=== PATIENT | female | born 1945 | race Caucasian/White ===

== ENCOUNTER 2017-08-02 15:59 | Inpatient (IN) ==
--- NOTE | 2017-08-02 16:05 | Emergency Department Report ---
Fall HPI - General Stated Complaint: Fell backwards off step, L hip pain Time Seen by Provider: 08/02/17 16:05 Disposition Referrals: Raquel Man MD [Primary Care Provider] -
[2017-08-02] MEDS ORDERED: FentaNYL 100 MCG/2 ML INJECTION IVP ONE ×2 (16:07→16:51)
[2017-08-02] MEDS: SALINE FLUSH 10ml SYRINGE IVF PRN ×3 (16:19→16:53)
[2017-08-02] MEDS ORDERED: FentaNYL 100 MCG/2 ML INJECTION NAS ONE (16:48)
--- NOTE | 2017-08-02 16:51 | XRay Report ---
Indication: preop hip fracture PROCEDURE: XR chest 1V: Encounter: Initial Comparison: None FINDINGS: The lungs are clear. There is no abnormal airspace opacity, pleural effusion or pneumothorax identified. The heart size and mediastinum are within normal limits. No significant skeletal abnormality is seen. IMPRESSION: No acute cardiopulmonary abnormality. .
--- NOTE | 2017-08-02 16:53 | CT Scan Report ---
Indication: fall, hit head PROCEDURE: CT head/brain wo con: Encounter: Initial Comparison: None Technique: Axial CT images through the head were performed without contrast. Iterative Reconstruction dose reducing technique was utilized. FINDINGS: The ventricles are of normal size, shape, and configuration for the patient's age. There is no evidence of acute intracranial hemorrhage, midline displacement, or mass effect. There are scattered areas of low attenuation in the white matter which most likely represent changes of chronic microvascular ischemia. The CT attenuation of the brain parenchyma is otherwise normal within the cerebellum, brain stem, and cerebral hemispheres. The tympanic cavities and mastoid air cells are free of appreciable disease. There are no definite fractures of the skull base, calvarium, or visualized portion of the midface. IMPRESSION: No CT evidence of acute traumatic intracranial injury. .
--- NOTE | 2017-08-02 16:54 | XRay Report ---
Indication: fall deformity to left femur PROCEDURE: AP and Lateral views of the Left Femur Encounter: Initial Comparison: None Findings: Comminuted displaced intertrochanteric left femoral fracture with varus angulation. No additional acute fracture or dislocation seen. Mild hip joint space narrowing. Impression: Closed post traumatic intertrochanteric left femoral fracture. .
--- NOTE | 2017-08-02 16:54 | XRay Report ---
Indication: fall deformity to left femur/hip PROCEDURE: XR pelvis 1-2V: Encounter: Initial Comparison: None Findings: Comminuted displaced foreshortened intertrochanteric left femoral fracture with varus angulation. No additional acute fracture or dislocation seen. Bony demineralization. Impression: Closed posttraumatic intertrochanteric left femoral fracture. .
[2017-08-02] MEDS ORDERED: ONDANSETRON 4 MG/2 ML INJECTION IVP ONE (17:03)
--- NOTE | 2017-08-02 17:50 | History & Physical Report ---
History of Present Illness Date: 08/02/17 Chief complaint: hip pain following a fall HPI: Patient is a 71-year-old female who resides at home with her son. Earlier today she was coming up stairs from her basement, forgot something, and started back down the stairs and fell. She did not lose consciousness. She had immediate pain. Her son was home and called EMS. She was brought to the emergency department and had a workup including negative CT head, negative chest x-ray, and pelvic/femur x-rays which revealed an intertrochanteric left hip fracture. EKG was normal. She had several fentanyl doses and a dose of Zofran in the ER. Urinary catheter was also placed on the ER. Dr. Verma was notified and plans to do surgery tomorrow. The hospitalist service was notified for admission of the patient. Review of Systems All systems PM: 10-point ROS was reviewed, no additional remarkable complaints except - Gastrointestinal Gastrointestinal: Present: nausea - Musculoskeletal Musculoskeletal: Present: other (L hip pain) PFSH Medical History Hypothyroidism Hyperlipidemia Osteopenia Surgical History: Cholecystectomy Family History: Father - . Bladder cancer Mother - of old age. TIA. Sister - Alzheimer's Son - Healthy - Social History Smoking status: Never smoker Substance use type: does not use Alcohol intake frequency: does not drink Housing: house Household members: children (son) Current occupational status: retired Social history: PCP-Dr. Man Medications Home Medications Medication Instructions Recorded Confirmed Type Levothyroxine Tab [Synthroid] 75 mcg PO ACB 08/02/17 08/02/17 History Simvastatin [Zocor] 10 mg PO HS 08/02/17 08/02/17 History Allergies Allergy/AdvReac Type Severity Reaction Status Date / Time Penicillins Allergy Hives Verified 08/02/17 16:17 Sulfa (Sulfonamide Allergy Verified 08/02/17 16:17 Antibiotics) Exam Vital Signs: Temperature 97.7 F 08/02/17 16:01 Pulse Rate 62 08/02/17 17:30 Respiratory Rate 18 08/02/17 16:01 Blood Pressure 179/73 H 08/02/17 17:30 Pulse Oximetry 100 08/02/17 17:30 Height/Weight/BMI: Height 1.73 m Weight 80 kg - Constitutional Present: no acute distress, well nourished, well developed - Routine HEENT Exam Head: Present: normocephalic, atraumatic Eye: Present: EOMI, PERRL ENT: Present: mucous membranes moist, dentition normal - Routine Neck Exam Present: supple. Absent: lymphadenopathy, thyromegaly - Routine Respiratory Exam Present: CTA bilaterally. Absent: wheezes - Routine Cardiovascular Exam Present: RRR. Absent: murmur - Routine Abdominal Exam Present: soft, normoactive bowel sounds, non distended. Absent: tenderness - Routine Extremities Exam Present: no edema, normal capillary refill Comments: L leg shortened and externally rotated - Routine Skin Exam Present: dry, warm - Routine Neurological Exam Present: alert, oriented X3, CN II-XII intact - Routine Psychiatric Exam Present: normal affect, cooperative Results - Labs CBC & Chem 7: 08/02/17 15:44 08/02/17 15:44 Labs: Laboratory Tests 08/02/17 15:44 AST 30 ALT 30 Alkaline Phosphatase 102 Urinalysis Completely negative. Specific gravity 1.020, pH 6.5 - ECG Data Tracing #1 NSR - Rate 65 BPM - Imaging and Cardiology CT scan - head Additional comments: Date of Exam: 08/02/17 Indication: fall, hit head PROCEDURE: CT head/brain wo con: FINDINGS: The ventricles are of normal size, shape, and configuration for the patient's age. There is no evidence of acute intracranial hemorrhage, midline displacement, or mass effect. There are scattered areas of low attenuation in the white matter which most likely represent changes of chronic microvascular ischemia. The CT attenuation of the brain parenchyma is otherwise normal within the cerebellum, brain stem, and cerebral hemispheres. The tympanic cavities and mastoid air cells are free of appreciable disease. There are no definite fractures of the skull base, calvarium, or visualized portion of the midface. IMPRESSION: No CT evidence of acute traumatic intracranial injury. Chest x-ray Additional comments: Date of Exam: 08/02/17 Indication: preop hip fracture PROCEDURE: XR chest 1V: FINDINGS: The lungs are clear. There is no abnormal airspace opacity, pleural effusion or pneumothorax identified. The heart size and mediastinum are within normal limits. No significant skeletal abnormality is seen. IMPRESSION: No acute cardiopulmonary abnormality. Pelvis xray Additional comments: Date of Exam: 08/02/17 Indication: fall deformity to left femur/hip PROCEDURE: XR pelvis 1-2V: Findings: Comminuted displaced foreshortened intertrochanteric left femoral fracture with varus angulation. No additional acute fracture or dislocation seen. Bony demineralization. Impression: Closed posttraumatic intertrochanteric left femoral fracture. femur xray Additional comments: Date of Exam: 08/02/17 Indication: fall deformity to left femur PROCEDURE: AP and Lateral views of the Left Femur Findings: Comminuted displaced intertrochanteric left femoral fracture with varus angulation. No additional acute fracture or dislocation seen. Mild hip joint space narrowing. Impression: Closed post traumatic intertrochanteric left femoral fracture. Assessment and Plan (1) Intertrochanteric fracture of left hip Current visit: Yes Status: Acute Assessment and Plan: Assessment Left intertrochanteric hip fracture Fall secondary to loss of footing Hypothyroidism Hyperlipidemia Osteopenia Jehovah witness - refuses blood transfusions Plan Admit as inpatient to the hospitalist service, Dr. Marquez attending, for intertrochanteric hip fracture. It is expected her stay will exceed 2 overnights given her fracture requiring surgery. Patient is a Buddhist and refuses blood transfusion, even in the midst of a life-threatening situation. Her son, Cl, is her DPOA-H. Consult placed to Dr. Verma with plan for surgery tomorrow. Nothing by mouth after midnight. Consult Dr. Bethea for metabolic bone workup. Check Vitamin D level. Nguyen catheter placed in emergency department. SCDs for DVT prophylaxis. MiraLAX,PRN milk of magnesia,PRN bisacodyl suppository, and senna plus docusate ordered for bowel motivation. Acetaminophen 500 mg every 5 hours and Dilaudid IV every 3 hours PRN pain. Ondansetron 4 mg IV every 6 hours PRN nausea/vomiting. Continue levothyroxine for hypothyroidism and simvastatin for hyperlipidemia. CBC, BMP, TSH and vitamin D in the a.m. for laboratory completeness. Patient wishes to be a full code. Patient is a Buddhist and refuses blood transfusion, even in the midst of a life-threatening situation. Her son, Cl, is her DPOA-H. Upon dismissal, care to return to Dr. Man. DVT Prophylaxis: SCD's Resuscitation Status: Full Code - Physician Narriative Physician: Chris Marquez MD Narriative: 08/02/17 19:22 Jimmy I have independently interviewed and examined pt. Chart reviewed. Case discussed with ED physician and my PA. Care plan developed with my supervision; agree with above. Patient presents to ED for evaluation of acute fall trauma. Was going up stairs from basement, when realized she forgot something. Backed down the 2 stairs and lost footing, falling on the cement floor. Significant pain with the fall. Able to sit up, but not move leg without significant pain. Hit head, but no loss of consciousness. Son upstairs and came to her aide. EMS activated. Found to have left hip fracture. Prior to her injury, she has been in her typical state of good health. No recent respiratory problems - breathing well without SOA, cough or congestions. No chest pain or pressure. Very active at home. Lungs: clear CV: regular AB: soft nt/nd +BS MSE: awake alert appropriate Assessment Left intertrochanteric femur fracture Fall secondary to loose of footing Hypothyroidism HDL Osteopenia of Hips - Dexa scan 2014 Jehovah witness - refuses blood transfusion Plan Inpatient admission for definitive surgical repair of her hip fracture. Anticipate greater than 2 midnights of hospital care needed. Orthopedic consult for surgical repair. Nguyen cath to monitor urine output and minimize need for movements. Control pain with Dilaudid. Zofran prn nausea. NS at 75cc/hr to maintain hydration - patient will be NPO post midnight for anticipated Sx tomorrow. Start routine Miralax and Senna Plus to decrease risk for constipation. MOM and Dulcolax suppositories prn. IS for pulmonary toilet. Check Vit D level due to fracture. Will start Ca with Vit D BID. Consult Dr Bethea for Metabolic Bone evaluation. SCD preop for DVT prevention. Monitor blood counts due to fracture and potential blood loss anemia. Recheck BMP in am due to IVF use. Check TSH secondary to hypothyroidism. Continue home medications. Full code as per her requests. Care to return to Dr Kim at time of discharge from [facility]. Hospital Course Summary Disclaimer: The visit summary below is not to be considered part of the above Progress Note. Hospital Course: Left intertrochanteric hip fracture Hypothyroidism Hyperlipidemia Osteopenia 08/02/17 Hospital admission Admit as inpatient to the hospitalist service, Dr. Marquez attending, for intertrochanteric hip fracture. It is expected her stay will exceed 2 overnights given her fracture requiring surgery. Consult placed to Dr. Verma with plan for surgery tomorrow. Nothing by mouth after midnight. Consult Dr. Bethea for metabolic bone workup. Nguyen catheter placed in emergency department. SCDs for DVT prophylaxis. MiraLAX,PRN milk of magnesia,PRN bisacodyl suppository, and senna plus docusate ordered for bowel motivation. Acetaminophen 500 mg every 5 hours and Dilaudid IV every 3 hours PRN pain. Ondansetron 4 mg IV every 6 hours PRN nausea/vomiting. Continue levothyroxine for hypothyroidism and simvastatin for hyperlipidemia. CBC, BMP, TSH and vitamin D in the a.m. for laboratory completeness. Patient wishes to be a full code. Upon dismissal, care to return to Dr. Man. Patient is a Buddhist and refuses blood transfusion, even in the midst of a life-threatening situation. Her son, Cl, is her DPOA-H.
[2017-08-02 18:23] VITALS: BMI 25.3
[2017-08-02] MEDS ORDERED: ACETAMINOPHEN 500 MG TABLET PO PRN (18:39)
[2017-08-02] MEDS ORDERED: HYDROMORPHONE 2 MG/ML INJECTION IVP PRN (18:39)
[2017-08-02] MEDS ORDERED: BISACODYL 10 MG SUPPOSITORY RECTALLY PRN (18:39)
[2017-08-02] MEDS: NS 1,000 ML IV SCH (18:47)
[2017-08-02] MEDS: SENNA + DOCUSATE TABLET PO SCH ×2 (19:58→20:05)
[2017-08-02] MEDS: CALCIUM 600 + VIT D 400 TABLET PO SCH ×2 (19:58→20:05)
[2017-08-02] MEDS: SIMVASTATIN 10 MG TABLET PO SCH ×2 (19:58→20:05)
[2017-08-03] MEDS: LEVOTHYROXINE 75 MCG TABLET PO SCH (05:44)
[2017-08-03] MEDS: POLYETHYL GLYCOL 3350 17gm PACKET PO SCH (08:12)
[2017-08-03] MEDS: SENNA + DOCUSATE TABLET PO SCH ×2 (08:12→20:06)
[2017-08-03] MEDS: CALCIUM 600 + VIT D 400 TABLET PO SCH ×2 (08:12→20:06)
[2017-08-03] MEDS: NS 1,000 ML IV SCH ×5 (08:19→17:59)
--- NOTE | 2017-08-03 08:25 | Progress Note ---
- Date 08/03/17 Subjective: Sandy is seen in her room this morning. She states pain control in her hip is tolerable. She states when she fell she did hit the back of her head but did not lose consciousness. She denies any headache or neck pain. She has good range of motion of her neck without any discomfort. She denies any history of heart problems, lung problems or bleeding abnormalities. She denies any shortness of breath or cough. She denies any chest pain, tightness or pressure. She states she does not exercise but is active, and mows the lawn without chest discomfort or shortness of breath. Surgery is planned for this afternoon. She reiterates to me that she would not want a blood transfusion. Objective Vital signs: Temperature 99.4 F 08/03/17 07:15 Pulse Rate 77 08/03/17 07:15 Respiratory Rate 16 08/03/17 07:15 Blood Pressure 143/57 H 08/03/17 07:15 Pulse Oximetry 98 08/03/17 07:15 Height/Weight/BMI: Height 1.73 m Weight 76.5 kg Body Mass Index 25.3 Comments: GEN-alert, oriented, no acute distress HEENT-sclera anicteric, oropharynx is moist NECK-supple, good range of motion CV-regular rate and rhythm, no murmurs CHEST-clear to auscultation bilaterally ABD-soft, nontender with positive bowel sounds -Nguyen in place EXT-SCDs on, no edema NEURO-alert and oriented 3, no focal deficits SKIN-warm and dry and without rashes Results - Labs CBC & Chem 7: 08/03/17 04:22 08/03/17 04:22 Assessment and Plan (1) Intertrochanteric fracture of left hip Current visit: Yes Status: Acute Assessment and Plan: Assessment Left intertrochanteric hip fracture Fall secondary to loss of footing -no loss of consciousness Hypothyroidism Hyperlipidemia Osteopenia Jehovah witness - refuses blood transfusions Acute blood loss anemia with hemoglobin of 13 on 08/02/2017 and and 10.9 2016 Plan Patient is a Mu-ism and refuses blood transfusion, even in the midst of a life-threatening situation. Her son, Cl, is her DPOA-H. Plan for surgery later today with Dr. Verma for hip fracture Consult Dr. Bethea for metabolic bone workup. Vitamin D level is pending. Continue Nguyen catheter for now SCDs for DVT prophylaxis. Start oral iron, and multivitamin tomorrow Acetaminophen 500 mg every 5 hours and Dilaudid IV every 3 hours PRN pain. Ondansetron 4 mg IV every 6 hours PRN nausea/vomiting. Continue levothyroxine for hypothyroidism and simvastatin for hyperlipidemia. CBC, BMP tomorrow DVT Prophylaxis: SCD's Resuscitation Status: Full Code Hospital Course Summary Disclaimer: The visit summary below is not to be considered part of the above Progress Note. Hospital Course: Left intertrochanteric hip fracture Hypothyroidism Hyperlipidemia Osteopenia 08/02/17 Hospital admission Admit as inpatient to the hospitalist service, Dr. Marquez attending, for intertrochanteric hip fracture. It is expected her stay will exceed 2 overnights given her fracture requiring surgery. Consult placed to Dr. Verma with plan for surgery tomorrow. Nothing by mouth after midnight. Consult Dr. Bethea for metabolic bone workup. Nguyen catheter placed in emergency department. SCDs for DVT prophylaxis. MiraLAX,PRN milk of magnesia,PRN bisacodyl suppository, and senna plus docusate ordered for bowel motivation. Acetaminophen 500 mg every 5 hours and Dilaudid IV every 3 hours PRN pain. Ondansetron 4 mg IV every 6 hours PRN nausea/vomiting. Continue levothyroxine for hypothyroidism and simvastatin for hyperlipidemia. CBC, BMP, TSH and vitamin D in the a.m. for laboratory completeness. Patient wishes to be a full code. Upon dismissal, care to return to Dr. Man. Patient is a Mu-ism and refuses blood transfusion, even in the midst of a life-threatening situation. Her son, Cl, is her DPOA-H.
[2017-08-03] MEDS ORDERED: CLINDAMYCIN PB 900 MG/50 ML BAG IV ONE (08:31)
--- NOTE | 2017-08-03 08:39 | Orthopedic Consult Note ---
Orthopedic Consultation HPI - Consultation Info Consult Date: 08/03/17 Attending Physician: Amish Marrero MD Consult Reason: fracture - History of Present Illness Sandy is a pleasant 71 year old female who lives independently in her own home. 08/02/17 she was going to the basement to get something to cook out of her deep freeze. She started back up the steps, and realized she forgot something. She described stepping back down the steps backwards, resulting in a fall on her left hip. She was transported to [facility] ER via ambulance where a left hip IT fracture was identified. She did hit the back of her head during her fall. CT head done in the ER was negative for intracranial bleed. Her pain is located in the left lateral hip. It is worse with activity, better with rest and IV narcotics. Presently, her pain is well controlled. She denies hip pain prior to her fall. She has been in her normal good state of health prior to the fall and denies chest pain, shortness of breath, abdominal pain, dysuria, fever, chills, sweats or renal issues. She is a [employer]regation and does not want any blood products. Hgb is 10.6., EKG is NSR. Review of Systems - Constitutional Constitutional: Absent: chills, fatigue, fever(s), headache(s) - EENT Eyes: Absent: blurry vision Ears, nose, mouth, throat: Absent: headaches - Cardiovascular Cardiovascular: Absent: chest pain, dyspnea on exertion Vascular: Absent: pedal edema - Respiratory Respiratory: Absent: cough, pain on inspiration - Gastrointestinal Gastrointestinal: Absent: abdominal pain - Genitourinary Genitourinary General: Absent: fatigue Genitourinary Female: Absent: dysuria - Musculoskeletal Musculoskeletal: Present: as per HPI - Integumentary/Breasts Integumentary: Absent: wounds - Neurological Neurological: Absent: numbness - Endocrine Endocrine: Absent: cold intolerance - Hematologic/Lymphatic Hematologic/Lymphatic: Absent: easy bleeding [facility] Patient Stated Medical History Other HEENT Yes: [facility] Medical History Intertrochanteric fracture of left hip (Acute Medical) Intertrochanteric fracture of left femur (Acute Medical) Surgical History: Cholecystectomy - Social History Smoking status: Never smoker Current residence: Apartment/Private Home (lives with adult son) Medications Home Medications Medication Instructions Recorded Confirmed Type Levothyroxine Tab [Synthroid] 75 mcg PO ACB 08/02/17 08/02/17 History Simvastatin [Zocor] 10 mg PO HS 08/02/17 08/02/17 History Allergies Allergy/AdvReac Type Severity Reaction Status Date / Time Penicillins Allergy Hives Verified 08/02/17 16:17 Sulfa (Sulfonamide Allergy Verified 08/02/17 16:17 Antibiotics) Orthopedic Exam Vital signs: Temperature 99.4 F 08/03/17 07:15 Pulse Rate 77 08/03/17 07:15 Respiratory Rate 16 08/03/17 07:15 Blood Pressure 143/57 H 08/03/17 07:15 Pulse Oximetry 98 08/03/17 07:15 - Constitutional General Appearance: Present: alert, orientated x3, no acute distress - Respiratory Exam Present: non-labored - Cardiovascular Exam Present: pedal pulses intact Capillary Refill: < 2-3 Seconds - Abdominal Exam Absent: tenderness - Extremities Exam Present: no edema, normal capillary refill Comments: left leg shortened and externally rotated. TTP over the lateral hip. Positive log roll. - Integumentary Exam Present: pink, warm, dry, intact - Lymphatic Lymphatic: Absent: lymphedema - Neurological Exam Present: intact to light touch, no deficits - Psychiatric Exam Present: alert, normal affect - Labs Result Diagrams: 08/03/17 04:22 08/03/17 04:22 Abnormal lab results 08/03/17 08/03/17 Range/Units 04:22 04:22 RBC 3.46 L (4.00-5.20) M/MM3 Hgb 10.9 L D (12-16) GM/DL Hct 33.0 L D (36-46) % Neut % (Auto) 74.3 H (33-66) % Lymph % (Auto) 16.2 L (23-45) % Glucose 117 H (65-110) MG/DL H & H 08/03/17 Range/Units 04:22 Hgb 10.9 L D (12-16) GM/DL Hct 33.0 L D (36-46) % - Diagnostic results Hip x-ray: report reviewed (CT head report reviewed), image reviewed Impression and Recommendation (1) Intertrochanteric fracture of left hip Current visit: Yes Qualifiers: Encounter type: initial encounter Fracture type: closed Fracture alignment: displaced Qualified Code(s): S72.142A - Displaced intertrochanteric fracture of left femur, initial encounter for closed fracture Status: Acute Recommendation: Left hip IM nail. Surgery is planned for this afternoon. Keep NPO Consent SCD's and continue IV pain control Risks and benefits of the recommended procedure were discussed with the patient and/or patient's legal provider relations representative. They include: infection, nerve damage, artery damage, stroke, OH, PE, DVT, ileus, continued pain, or risk that the injury may not heal despite surgery. There are also medical risks of anesthesia. Risks are not limited to the above mentioned alone. Hospital Course Summary Disclaimer: The visit summary below is not to be considered part of the above Progress Note. Hospital Course: Left intertrochanteric hip fracture Hypothyroidism Hyperlipidemia Osteopenia 08/02/17 Hospital admission Admit as inpatient to the hospitalist service, Dr. Marquez attending, for intertrochanteric hip fracture. It is expected her stay will exceed 2 overnights given her fracture requiring surgery. Consult placed to Dr. Verma with plan for surgery tomorrow. Nothing by mouth after midnight. Consult Dr. Bethea for metabolic bone workup. Nguyen catheter placed in emergency department. SCDs for DVT prophylaxis. MiraLAX,PRN milk of magnesia,PRN bisacodyl suppository, and senna plus docusate ordered for bowel motivation. Acetaminophen 500 mg every 5 hours and Dilaudid IV every 3 hours PRN pain. Ondansetron 4 mg IV every 6 hours PRN nausea/vomiting. Continue levothyroxine for hypothyroidism and simvastatin for hyperlipidemia. CBC, BMP, TSH and vitamin D in the a.m. for laboratory completeness. Patient wishes to be a full code. Upon dismissal, care to return to Dr. Man. Patient is a Congregation and refuses blood transfusion, even in the midst of a life-threatening situation. Her son, Cl, is her DPOA-H.
[2017-08-03] MEDS: NOZIN NASAL SWAB NAS ONE (13:01)
[2017-08-03] MEDS ORDERED: FentaNYL 100 MCG/2 ML INJECTION IVP ONE (13:12)
--- NOTE | 2017-08-03 13:18 | Anesthesia Preoperative Report ---
Anesthesia Preoperative Record - Date and Time Date: 08/03/17 Preoperative Diagnosis: left intertrochanteric femur fracture Proposed Procedure: orif left hip NPO Since Date: 08/02/17 NPO Since Time: 23:00 Allergies/Adverse Reactions: Allergies Allergy/AdvReac Type Severity Reaction Status Date / Time Penicillins Allergy Hives Verified 08/02/17 16:17 Sulfa (Sulfonamide Allergy Verified 08/02/17 16:17 Antibiotics) - Vital Signs Vital Signs: Temperature 99.2 F 08/03/17 12:51 Pulse Rate 78 08/03/17 12:51 Respiratory Rate 16 08/03/17 12:51 Blood Pressure 169/72 H 08/03/17 12:51 Pulse Oximetry 96 08/03/17 12:51 Height and Weight: Height 1.73 m Weight 76.5 kg Body Mass Index 25.3 - Medications Inpatient Medications: Current Medications Acetaminophen (Tylenol) 500 mg PO Q5H PRN PRN Reason: Discomfort Last Admin: 08/02/17 19:58 Dose: 500 mg Bisacodyl (Dulcolax) 10 mg RECTALLY DAILY PRN PRN Reason: Constipation Calcium/Vitamin D (Caltrate + D) 1 tab PO BID [facility] Last Admin: 08/03/17 08:12 Dose: Not Given Fentanyl (Sublimaze) 100 mcg IVP O ONE Stop: 08/03/17 13:13 Folic Acid/Iron/Vitamin B12 (Niferex Forte) 1 cap PO DAILY [facility] Hydromorphone HCl (Dilaudid) 0.5 mg IVP Q3H PRN PRN Reason: Pain Sodium Chloride (Normal Saline) 1,000 mls @ 75 mls/hr IV .[id number] [facility] Last Admin: 08/03/17 08:19 Dose: 75 mls/hr Sodium Chloride (Normal Saline) 1,000 mls @ 75 mls/hr IV .[id number] [facility] Last Admin: 08/03/17 13:00 Dose: 75 mls/hr Levothyroxine Sodium (Synthroid) 75 mcg PO ACB [facility] Last Admin: 08/03/17 05:44 Dose: 75 mcg Magnesium Hydroxide (Mom) 30 ml PO DAILY PRN PRN Reason: Constipation Ondansetron HCl (Zofran) 4 mg IVP Q6H PRN PRN Reason: Nausea Polyethylene Glycol (Miralax) 17 gm PO DAILY [facility] Last Admin: 08/03/17 08:12 Dose: Not Given Senna/Docusate Sodium (Senna Plus Tablet) 1 tab PO BID [facility] Last Admin: 08/03/17 08:12 Dose: Not Given Simvastatin (Zocor) 10 mg PO HS [facility] Last Admin: 08/02/17 20:05 Dose: Not Given Sodium Chloride (Iv Flush) 10 - 80 ml IVF PRN PRN PRN Reason: Flushing Last Admin: 08/02/17 16:53 Dose: 10 ml Home Medications: Home Medications Medication Instructions Recorded Confirmed Type Levothyroxine Tab [Synthroid] 75 mcg PO ACB 08/02/17 08/02/17 History Simvastatin [Zocor] 10 mg PO HS 08/02/17 08/02/17 History - Medical History Cardiovascular: Reports: High Cholesterol Renal/Endocrine: Reports: Thyroid Disease (Hypothydroidism) - Surgical History GI Surgery/Treatments: Reports: Cholecystectomy Anesthesia Reactions: None Hx Family Anesthesia Reaction: No - Social History Smoking Status: Never smoker Substance Use Type: does not use Alcohol Intake Frequency: does not drink - Pertinent Findings Laboratory: CBC and BMP 08/03/17 04:22 08/03/17 04:22 BMP 08/03/17 04:22 Sodium 138 Potassium 3.9 Chloride 103 Carbon Dioxide 28 BUN 17.0 Creatinine 0.9 D Glucose 117 H Calcium 9.5 Urine 08/02/17 Range/Units 17:30 Urine Color Yellow (YELLOW) Urine Clarity Clear Urine pH 6.5 (5.0-8.0) Ur Specific [place] 1.020 (1.015-1.025) Urine Protein Negative (NEGATIVE) Urine Glucose (UA) Negative (NEGATIVE) EKG: Sinus Rhythm - Physical Exam Respiratory Exam: Present: lungs clear, bilateral breath sounds equal Cardiovascular Exam: Present: regular rate and rhythm - Airway Assessment Mallampati Score: II TMD: 2 Fingerbreadths, 3 Fingerbreadths Neck Extension: good Overall Assessment: no airway concerns - ASA ASA Score: 2 - Plan Anesthesia: General TIVA, General Inhalation Gases - Discussion Discussion: Discussed risks/options/alternatives of anesthesia and questions answered. Patient consents. Nursing pain assessment noted. Attestation Statement: Prior to the delivery of any anesthetic medication, I examined the patient, developed the plan, obtained the patient's consent and discussed the risk and benefits of the procedure with the patient/guardian.
[2017-08-03] MEDS: ONDANSETRON 4 MG/2 ML INJECTION IVP PRN ×2 (13:33→18:31)
[2017-08-03] MEDS ORDERED: KETAMINE 500 MG/10 ML INJECTION ONE (13:42)
[2017-08-03] MEDS ORDERED: PROPOFOL 20 ML ONE ×2 (13:42→16:08)
[2017-08-03] MEDS ORDERED: LIDOCAINE 2% (100mg/5mL) PF 5ml vl ONE (13:42)
[2017-08-03] MEDS ORDERED: FentaNYL 100 MCG/2 ML INJECTION ONE ×3 (13:42→16:23)
[2017-08-03] MEDS ORDERED: MIDAZOLAM 2mg/2ml INJECTION IVP ONE (13:59)
[2017-08-03] MEDS ORDERED: BUPIVACAINE 0.25% (2.5mg/ml) PF 30ml INJECTION ONE (15:24)
[2017-08-03] MEDS ORDERED: LIDOCAINE 1% (10mg/ml) 30ml SDV INJ ONE (15:24)
[2017-08-03] MEDS ORDERED: EPHEDRINE 50mg/ml INJECTION ONE (15:34)
[2017-08-03] MEDS ORDERED: BUPIV 0.25% 30ml/LIDO 1% 30ml MIXTURE ID ONE (15:39)
[2017-08-03] MEDS ORDERED: TRANEXAMIC ACID 1,000mg/10ml INJECTION TOP ONE (16:00)
[2017-08-03] MEDS ORDERED: METOCLOPRAMIDE 10mg/2ml INJECTION IVP PRN (16:36)
[2017-08-03] MEDS ORDERED: HYDROMORPHONE 2 MG/ML INJECTION IVP PRN (16:36)
[2017-08-03] MEDS ORDERED: NOZIN NASAL SWAB NAS ONE (17:56)
[2017-08-03] MEDS: NOZIN NASAL SWAB NAS SCH ×2 (17:59→20:06)
[2017-08-03] MEDS: CLINDAMYCIN PB 900 MG/50 ML BAG IV SCH (20:06)
[2017-08-03] MEDS: SIMVASTATIN 10 MG TABLET PO SCH (20:06)
[2017-08-04] MEDS: NOZIN NASAL SWAB NAS SCH ×4 (02:16→20:00)
[2017-08-04] MEDS: CLINDAMYCIN PB 900 MG/50 ML BAG IV SCH ×2 (02:16→08:58)
[2017-08-04] MEDS: NS 1,000 ML IV SCH ×2 (03:18→05:37)
[2017-08-04] MEDS: LEVOTHYROXINE 75 MCG TABLET PO SCH (06:26)
--- NOTE | 2017-08-04 07:34 | Orthopedic Progress Note ---
Date: Subjective/Severity of Illness: Sandy is sitting up in bed and appears comfortable. Denies lightheadedness or dizziness. Pain is well controlled. She has not been out of bed yet. Hgb 7.8 but well tolerated. Dressings dry. N/V intact. Orthopedic Objective PO Vital signs: Temperature 96.3 F L 08/04/17 03:00 Pulse Rate 78 08/04/17 03:00 Respiratory Rate 16 08/04/17 03:00 Blood Pressure 101/46 08/04/17 03:00 Pulse Oximetry 94 08/04/17 03:00 Height and Weight: Height 5 ft 8 in Weight 168 lb 10.458 oz Body Mass Index 25.3 - Constitutional General Appearance: Present: alert, no acute distress - Respiratory Exam Present: non-labored - Cardiovascular Exam Present: pedal pulses intact - Surgical Site Incision: dressing intact, no drainage (Mild shaddowing but no significant drainage.) - Integumentary Exam Present: pink, warm, dry, intact - Neurological Exam Present: intact to light touch, no deficits - Psychiatric Exam Present: alert, normal affect - Labs Result Diagrams: 08/04/17 04:32 08/04/17 04:32 Abnormal lab results 08/04/17 08/04/17 Range/Units 04:32 04:32 RBC 2.47 L (4.00-5.20) M/MM3 Hgb 7.8 L D (12-16) GM/DL Hct 24.2 L D (36-46) % Neut % (Auto) 77.7 H (33-66) % Lymph % (Auto) 12.0 L (23-45) % [place] % (Auto) 10.0 H (0-9.0) % Lymph # (Auto) 0.9 L (1-4.8) T/MM3 Chloride 108 H (98-107) MEQ/L Glucose 135 H (65-110) MG/DL Calcium 7.8 L D (8.4-10.2) MG/DL H & H 08/03/17 08/04/17 Range/Units 04:22 04:32 Hgb 10.9 L D 7.8 L D (12-16) GM/DL Hct 33.0 L D 24.2 L D (36-46) % Orthopedic Assessment and Plan (1) Intertrochanteric fracture of left hip Status: Acute Qualifiers: Encounter type: initial encounter Fracture type: closed Fracture alignment: displaced Qualified Code(s): S72.142A - Displaced intertrochanteric fracture of left femur, initial encounter for closed fracture Assessment and Plan: Long Gamma Nail by Dr Marrero 08/03/17. Lovenox for DVT coverage. Recommend 30 days. Anemia well tolerated at this time. Hgb 7.8 Mobilize with PT . WBAT. - Anticoagulation Therapy Anticoagulation: Lovenox 40 mg SQ Daily x 30 days from day of surgery Hospital Course Summary Disclaimer: The visit summary below is not to be considered part of the above Progress Note. Hospital Course: Left intertrochanteric hip fracture Hypothyroidism Hyperlipidemia Osteopenia 08/02/17 Hospital admission Admit as inpatient to the hospitalist service, Dr. Marquez attending, for intertrochanteric hip fracture. It is expected her stay will exceed 2 overnights given her fracture requiring surgery. Consult placed to Dr. Verma with plan for surgery tomorrow. Nothing by mouth after midnight. Consult Dr. Bethea for metabolic bone workup. Nguyen catheter placed in emergency department. SCDs for DVT prophylaxis. MiraLAX,PRN milk of magnesia,PRN bisacodyl suppository, and senna plus docusate ordered for bowel motivation. Acetaminophen 500 mg every 5 hours and Dilaudid IV every 3 hours PRN pain. Ondansetron 4 mg IV every 6 hours PRN nausea/vomiting. Continue levothyroxine for hypothyroidism and simvastatin for hyperlipidemia. CBC, BMP, TSH and vitamin D in the a.m. for laboratory completeness. Patient wishes to be a full code. Upon dismissal, care to return to Dr. Man. Patient is a Spiritism and refuses blood transfusion, even in the midst of a life-threatening situation. Her son, Cl, is her DPOA-H.
--- NOTE | 2017-08-04 08:26 | Remote Fluorsocopy Report ---
Indication: LEFT HIP GAMMA NAIL PROCEDURE: RF hip LT 2 view: Encounter: Initial Comparison: Left pelvis radiographs dated August 02, 2017 Findings: Six fluoroscopic spot images are submitted for interpretation. Images show a reduction and internal fixation of the intertrochanteric left femoral fracture with placement of an intramedullary nail, compression screw and two distal interlocking screws. Improved alignment of the fracture fragments. Impression: Fluoroscopy as above. Fluoroscopy time is 209.4 seconds. Fluoroscopy dose is 4870 mRad. .
[2017-08-04] MEDS: HYDROCODONE/APAP 5mg/325mg TABLET PO PRN ×2 (08:56→20:53)
[2017-08-04] MEDS: POLYETHYL GLYCOL 3350 17gm PACKET PO SCH (08:59)
[2017-08-04] MEDS: SENNA + DOCUSATE TABLET PO SCH ×2 (08:59→20:00)
[2017-08-04] MEDS: ASPIRIN *EC* 81 MG TABLET PO SCH ×2 (08:59→20:00)
[2017-08-04] MEDS ORDERED: NIFEREX FORTE 150 CAPSULE PO SCH (09:00)
[2017-08-04] MEDS ORDERED: ENOXAPARIN 40 MG/0.4 ML INJECTION SQ SCH (09:00)
--- NOTE | 2017-08-04 09:05 | Progress Note ---
- Date 08/04/17 Subjective: Sandy is seen this morning in her room sitting up in a chair. She states she does have some pain in her hip, especially with movement. She has not yet taken any pain medication this morning but will take some now. She denies any lightheadedness, chest pain or shortness of breath. She has no nausea or vomiting. She had decreased urine output last night with only 120 ML's. She has IV fluids going at 80 ML's per hour. Objective Vital signs: Temperature 96.7 F L 08/04/17 07:00 Pulse Rate 79 08/04/17 07:00 Respiratory Rate 20 08/04/17 07:00 Blood Pressure 131/52 08/04/17 07:00 Pulse Oximetry 97 08/04/17 07:00 Height/Weight/BMI: Height 1.73 m Weight 81.7 kg Body Mass Index 25.3 Comments: GEN-mildly pale, alert, oriented, no acute distress HEENT-sclera anicteric, oropharynx is moist NECK-supple CV-regular rate and rhythm CHEST-clear to auscultation bilaterally ABD-soft, nontender, nondistended, positive bowel sounds -no Nguyen EXT-no edema, SCDs are on NEURO-no focal deficits SKIN-warm and dry Results - Labs CBC & Chem 7: 08/04/17 04:32 08/04/17 04:32 Assessment and Plan (1) Intertrochanteric fracture of left hip Current visit: Yes Status: Acute Assessment and Plan: Assessment Left intertrochanteric hip fracture Fall secondary to loss of footing -no loss of consciousness Hypothyroidism Hyperlipidemia Osteopenia Jehovah witness - does not want blood transfusions Acute blood loss anemia with hemoglobin of 13 on 08/02/2017 and and 10.9 2016 and 7.8 on 08/04/2017 Plan Overall, the patient is doing well. She is asymptomatic with hemoglobin of 7.8. We'll start oral iron/B 12/folic acid. Consult Dr. Bethea for metabolic bone workup. Vitamin D level is pending. Continue Nguyen catheter for now due to decreased urine output, if urine output has improved by noon can discontinue. Encourage increase fluid intake SCDs for DVT prophylaxis. Discussed with MEREDITH Irby for Dr. Marrero today. She will also receive aspirin today and hold off on Lovenox this morning, possibly start Lovenox tomorrow. DC IV fluids when taking by mouth well Continue levothyroxine for hypothyroidism and simvastatin for hyperlipidemia. DVT Prophylaxis: SCD's Resuscitation Status: Full Code - Physician Narriative Physician: Mena Welsh MD Hospital Course Summary Disclaimer: The visit summary below is not to be considered part of the above Progress Note. Hospital Course: Left intertrochanteric hip fracture Hypothyroidism Hyperlipidemia Osteopenia 08/02/17 Hospital admission Admit as inpatient to the hospitalist service, Dr. Marquez attending, for intertrochanteric hip fracture. It is expected her stay will exceed 2 overnights given her fracture requiring surgery. Consult placed to Dr. Verma with plan for surgery tomorrow. Nothing by mouth after midnight. Consult Dr. Bethea for metabolic bone workup. Nguyen catheter placed in emergency department. SCDs for DVT prophylaxis. MiraLAX,PRN milk of magnesia,PRN bisacodyl suppository, and senna plus docusate ordered for bowel motivation. Acetaminophen 500 mg every 5 hours and Dilaudid IV every 3 hours PRN pain. Ondansetron 4 mg IV every 6 hours PRN nausea/vomiting. Continue levothyroxine for hypothyroidism and simvastatin for hyperlipidemia. CBC, BMP, TSH and vitamin D in the a.m. for laboratory completeness. Patient wishes to be a full code. Upon dismissal, care to return to Dr. Man. Patient is a Bahai and refuses blood transfusion, even in the midst of a life-threatening situation. Her son, Cl, is her DPOA-H. 08/03/2017 Plan Patient is a Bahai and refuses blood transfusion, even in the midst of a life-threatening situation. Her son, Cl, is her DPOA-H. Plan for surgery later today with Dr. Verma for hip fracture Consult Dr. Bethea for metabolic bone workup. Vitamin D level is pending. Continue Nguyen catheter for now SCDs for DVT prophylaxis. Start oral iron, and multivitamin tomorrow Acetaminophen 500 mg every 5 hours and Dilaudid IV every 3 hours PRN pain. Ondansetron 4 mg IV every 6 hours PRN nausea/vomiting. Continue levothyroxine for hypothyroidism and simvastatin for hyperlipidemia. CBC, BMP tomorrow
[2017-08-04] MEDS: NIFEREX FORTE 150 CAPSULE PO SCH ×2 (09:06→20:00)
[2017-08-04] MEDS: CALCIUM 600 + VIT D 400 TABLET PO SCH ×2 (09:06→20:00)
--- NOTE | 2017-08-04 10:05 | Operative Note ---
DATE OF PROCEDURE 08/03/2017 PREOPERATIVE DIAGNOSIS Left three-part intertrochanteric hip fracture. POSTOPERATIVE DIAGNOSIS Left three-part intertrochanteric hip fracture. PROCEDURE Intramedullary fixation of left intertrochanteric hip fracture. SURGEON Jaylen Marrero MD ACCREDITATION COORDINATOR Mahamed Bey PA-C COMPLICATIONS None. ANESTHESIA General with LMA. EBL AND FLUIDS Please see Anesthetic Records. COMPLICATIONS None. DESCRIPTION OF PROCEDURE Mrs. Cutler and her left hip were identified and marked in her hospital room bed. She was brought back to the operating suite and placed supine on the fracture table. She was then placed under general anesthesia. Both feet were placed in well-padded traction boots. The left leg was placed into traction and internal rotation. The right leg was placed into extension without any traction. Fluoroscopic images confirmed reduction. The left lower extremity was then prepped and draped in my normal sterile fashion. Time-out was performed. A 3 cm incision was made proximal to the greater trochanter. The proximal femur was opened over a guidepin. A long guidepin was then passed. While passing the long guidepin, it did feel as if there was some unusual resistance in the canal. With fluoroscopic imaging, the pin was abutted against the anterior cortex. I did not see a reason why it would be doing this by looking at the canal. I brought the long guide sonia back out. I put a small bend on the end and then re-passed it. This time I was able to get it down to the distal femur without incident. I then overreamed to a 12.5. I did send reaming samples to Pathology. I then measured for a 380 mm nail. I passed an 11 x 380 mm nail over the guidewire. A lag screw was then placed into a center-center location to the femoral head using an aiming arm. The compression screw was used to provide compression at the fracture site which did appear to tighten down nicely. The nail was then lock proximally and then let off an eighth of a turn so the nail could slide. The proximal wounds were then fully irrigated and the deep layer was closed with 2-0 Vicryl. Subcutaneous tissue was also closed with 2-0 Vicryl and the skin was closed with running 4-0 Monocryl. I then injected 3 g of TXA around the fracture site using an 18 gauge spinal needle. Two locking bolts were then placed distally using perfect-nondalton technique from lateral to medial. These wounds were also closed in a similar fashion. Sterile dressings were then placed. The traction boots were removed. She was allowed to awaken from general anesthesia and then taken back to the Recovery Room under the care of Anesthesia. She tolerated the procedure well. There were no complications. PHILL
[2017-08-04] MEDS ORDERED: FUROSEMIDE 20 MG/2 ML INJECTION IVP ONE (15:03)
[2017-08-04] MEDS: SIMVASTATIN 10 MG TABLET PO SCH (20:00)
[2017-08-05] MEDS: NOZIN NASAL SWAB NAS SCH ×4 (01:06→18:40)
[2017-08-05] MEDS: LEVOTHYROXINE 75 MCG TABLET PO SCH (06:57)
[2017-08-05] MEDS: HYDROCODONE/APAP 5mg/325mg TABLET PO PRN (06:59)
[2017-08-05] MEDS: NIFEREX FORTE 150 CAPSULE PO SCH (08:32)
[2017-08-05] MEDS: CALCIUM 600 + VIT D 400 TABLET PO SCH ×2 (08:32→21:52)
[2017-08-05] MEDS: SENNA + DOCUSATE TABLET PO SCH ×2 (08:33→21:52)
[2017-08-05] MEDS: ASPIRIN *EC* 81 MG TABLET PO SCH ×2 (08:33→21:52)
[2017-08-05] MEDS: POLYETHYL GLYCOL 3350 17gm PACKET PO SCH (08:33)
--- NOTE | 2017-08-05 10:05 | Orthopedic Progress Note ---
Date: Subjective/Severity of Illness: Sandy is sitting up in bed and appears comfortable. She states she feels a little dizzy when she first sits up but it resolves quickly. Denies CP or breathing difficulties. She was up with PT yesterday and it hurts more with activity. Pain is minimal at rest. Switched from Lovenox to ASA twice a day and will encourage SCDs and mobility to prevent DVTs. Hgb down to 6.7 today Orthopedic Objective PO Vital signs: Temperature 97.1 F 08/05/17 07:30 Pulse Rate 85 08/05/17 07:30 Respiratory Rate 12 08/05/17 07:30 Blood Pressure 127/51 08/05/17 07:30 Pulse Oximetry 95 08/05/17 07:30 Height and Weight: Height 5 ft 8 in Weight 173 lb 8.061 oz Body Mass Index 25.3 - Constitutional General Appearance: Present: alert, no acute distress - Respiratory Exam Present: non-labored - Cardiovascular Exam Present: pedal pulses intact - Surgical Site Incision: dressing intact, no drainage - Integumentary Exam Present: pink, warm, dry, intact - Neurological Exam Present: intact to light touch, no deficits - Psychiatric Exam Present: alert, normal affect - Labs Result Diagrams: 08/05/17 03:57 08/05/17 03:57 Abnormal lab results 08/05/17 08/05/17 Range/Units 03:57 03:57 RBC 2.12 L (4.00-5.20) M/MM3 Hgb 6.7 L D (12-16) GM/DL Hct 20.6 L D (36-46) % Immature Gran % (Auto) 0.6 H (0.0-0.5) % Lymph % (Auto) 21.9 L (23-45) % [place] % (Auto) 11.2 H (0-9.0) % Abs Immat Gran (auto) 0.04 H (0.00-0.03) T/MM3 Glucose 112 H (65-110) MG/DL H & H 08/03/17 08/04/17 08/05/17 Range/Units 04:22 04:32 03:57 Hgb 10.9 L D 7.8 L D 6.7 L D (12-16) GM/DL Hct 33.0 L D 24.2 L D 20.6 L D (36-46) % Orthopedic Assessment and Plan (1) Intertrochanteric fracture of left hip Status: Acute Qualifiers: Encounter type: initial encounter Fracture type: closed Fracture alignment: displaced Qualified Code(s): S72.142A - Displaced intertrochanteric fracture of left femur, initial encounter for closed fracture Assessment and Plan: Long Gamma Nail by Dr Marrero 08/03/17. Aspirin and SCDs for DVT coverage in place of Lovenox. Anemia fairly well tolerated at this time. Hgb 6.7 Folic acid / B12 and iron ordered. Mobilize with PT . WBAT. IRU screen in progress. - Anticoagulation Therapy Anticoagulation: ASA 81 mg PO BID x6 weeks Hospital Course Summary Disclaimer: The visit summary below is not to be considered part of the above Progress Note. Hospital Course: Left intertrochanteric hip fracture Hypothyroidism Hyperlipidemia Osteopenia 08/02/17 Hospital admission Admit as inpatient to the hospitalist service, Dr. Marquez attending, for intertrochanteric hip fracture. It is expected her stay will exceed 2 overnights given her fracture requiring surgery. Consult placed to Dr. Verma with plan for surgery tomorrow. Nothing by mouth after midnight. Consult Dr. Bethea for metabolic bone workup. Nguyen catheter placed in emergency department. SCDs for DVT prophylaxis. MiraLAX,PRN milk of magnesia,PRN bisacodyl suppository, and senna plus docusate ordered for bowel motivation. Acetaminophen 500 mg every 5 hours and Dilaudid IV every 3 hours PRN pain. Ondansetron 4 mg IV every 6 hours PRN nausea/vomiting. Continue levothyroxine for hypothyroidism and simvastatin for hyperlipidemia. CBC, BMP, TSH and vitamin D in the a.m. for laboratory completeness. Patient wishes to be a full code. Upon dismissal, care to return to Dr. Man. Patient is a Restorationist and refuses blood transfusion, even in the midst of a life-threatening situation. Her son, Cl, is her DPOA-H. 08/03/2017 Plan Patient is a Restorationist and refuses blood transfusion, even in the midst of a life-threatening situation. Her son, Cl, is her DPOA-H. Plan for surgery later today with Dr. Verma for hip fracture Consult Dr. Bethea for metabolic bone workup. Vitamin D level is pending. Continue Nguyen catheter for now SCDs for DVT prophylaxis. Start oral iron, and multivitamin tomorrow Acetaminophen 500 mg every 5 hours and Dilaudid IV every 3 hours PRN pain. Ondansetron 4 mg IV every 6 hours PRN nausea/vomiting. Continue levothyroxine for hypothyroidism and simvastatin for hyperlipidemia. CBC, BMP tomorrow
--- NOTE | 2017-08-05 11:27 | Progress Note ---
- Date 08/05/17 Subjective: Mrs. Cutler is seen this morning in follow up for her left femur fracture repair on 08/03/17 and acute blood loss anemia. She is seen while sitting in her recliner, watching TV. She denies any complaints or concerns including no chest pain, shortness of breath, palpitations, abdominal pain, nausea, vomiting or dysuria. She denies any dizziness, lightheadedness or near syncope though review of medical chart reveals that she admitted to some lightheadedness when standing when examined by ortho this morning. She admits that she has not had a BM in several days and feels "full". She feels gas moving around in her stomach but denies any flatulence. She states that she does not have much of an appetite and attributes it to being constipated. Vital signs remain stable. Pain is well controlled, currently 0/10 at rest and increases to 5/10 with movement. Hemoglobin continues to trend down and currently 6.7. As she is a Jehovah witness, she again refused blood transfusion. Objective Vital signs: Temperature 97.1 F 08/05/17 07:30 Pulse Rate 85 08/05/17 07:30 Respiratory Rate 12 08/05/17 07:30 Blood Pressure 127/51 08/05/17 07:30 Pulse Oximetry 95 08/05/17 07:30 Height/Weight/BMI: Height 5 ft 8 in Weight 173 lb 8.061 oz Body Mass Index 25.3 Comments: Patient seen while resting in her recliner in no apparent distress. - Constitutional Present: no acute distress, well nourished, well developed, cooperative - Routine HEENT Exam Head: Present: normocephalic, atraumatic Eye: Present: PERRL. Absent: conjunctival icterus ENT: Present: mucous membranes moist - Routine Respiratory Exam Present: CTA bilaterally. Absent: prolonged expiratory phase, rales, respiratory distress, rhonchi, stridor, wheezes, crackles - Routine Cardiovascular Exam Present: RRR, S1, S2, no murmur - Routine Abdominal Exam Present: soft, non tender. Absent: rebound, guarding Comments: hypoactive bowel sounds. - Routine Extremities Exam Present: edema (mild to left lower extremity; no edema noted to right lower extremity.), pulses intact Comments: surgical bandage to left hip clean, dry and intact; ice present to area. - Routine Back/Spine/Pelvis Exam Back/Spine: Present: full ROM. Absent: vertebral tenderness - Routine Musculoskeletal Exam Musculoskeletal: Present: no clubbing or cyanosis, normal strength, moving extremities well - Routine Skin Exam Present: dry, warm. Absent: jaundice Comments: afebrile - Routine Neurological Exam Present: alert, oriented X3, moving all extremities, hearing grossly intact, normal speech. Absent: facial asymmetry - Routine Lymphatic Exam Lymphatic: Absent: lymphedema - Routine Psychiatric Exam Present: normal affect, cooperative, good insight, good judgment Results - Labs CBC & Chem 7: 08/05/17 03:57 08/05/17 03:57 Assessment and Plan (1) Intertrochanteric fracture of left hip Current visit: Yes Status: Acute Assessment and Plan: Assessment S/P long gamma nail placement by Dr. Marrero - 08/03/17. Left intertrochanteric hip fracture Fall secondary to loss of footing -no loss of consciousness Hypothyroidism Hyperlipidemia Osteopenia Jehovah witness - does not want blood transfusions Acute blood loss anemia with hemoglobin of 13 on 08/02/2017 and and 10.9 2016 and 7.8 on 08/04/2017, 6.7 on 08/05. Plan - 08/05/17 (Mirakian) POD #2. Overall, Mrs. Cutler is doing well and continues to improve. Her pain is well controlled. Continue pain control, limiting narcotics as able. Continue to encourage participation in therapies for strengthening and improvement functional abilities. Awaiting IRU screen. Hemoglobin continues to trend down - currently 6.7. No signs of acute bleeding and denies symptoms. Discussed and offered blood transfusion which she refused as she is a Jehovah witness Patient is a [employer]. Her son, Cl, is her DPOA-H. She was started on iron/B12/folic acid on 08/04. Discussed with Dr. Fitzgerald ( covering attending for hospitalist) who recommended consulting pharmacy about possible Infed infusion. Vitamine D level was borderline low at 39. Continue Calcium with Vit. D supplementation. Appreciate Dr. Bethea's time and expertise regarding metabolic bone work up. Urine output improved with Lasix 20mg x 1 dose given on 08/04/17. Nguyen removed and patient voiding well. Continue to monitor urinary output closely and encourage oral fluid intake. IV fluids discontinued on 08/04/17. Continue SCDs and ASA BID for DVT prophylaxis. Continue levothyroxine for hypothyroidism and simvastatin for hyperlipidemia. Will recheck CBC and BMP in AM to monitor blood counts, electrolytes and renal function. DVT Prophylaxis: SCD's Resuscitation Status: Full Code - Time spent with patient Time with patient PN: 35 minutes - Physician Narriative Physician: other (Dr. Fitzgerald) Hospital Course Summary Disclaimer: The visit summary below is not to be considered part of the above Progress Note. Hospital Course: Left intertrochanteric hip fracture Hypothyroidism Hyperlipidemia Osteopenia 08/02/17 Hospital admission Admit as inpatient to the hospitalist service, Dr. Marquez attending, for intertrochanteric hip fracture. It is expected her stay will exceed 2 overnights given her fracture requiring surgery. Consult placed to Dr. Verma with plan for surgery tomorrow. Nothing by mouth after midnight. Consult Dr. Bethea for metabolic bone workup. Nguyen catheter placed in emergency department. SCDs for DVT prophylaxis. MiraLAX,PRN milk of magnesia,PRN bisacodyl suppository, and senna plus docusate ordered for bowel motivation. Acetaminophen 500 mg every 5 hours and Dilaudid IV every 3 hours PRN pain. Ondansetron 4 mg IV every 6 hours PRN nausea/vomiting. Continue levothyroxine for hypothyroidism and simvastatin for hyperlipidemia. CBC, BMP, TSH and vitamin D in the a.m. for laboratory completeness. Patient wishes to be a full code. Upon dismissal, care to return to Dr. Man. Patient is a Amish and refuses blood transfusion, even in the midst of a life-threatening situation. Her son, Cl, is her DPOA-H. 08/03/2017 Plan Overall, Mrs. Cutler is doing well and continues to improve. Her pain is well controlled. Continue pain control, limiting narcotics as able. Continue to encourage participation in therapies for strengthening and improvement functional abilities. Awaiting IRU screen. Hemoglobin continues to trend down - currently 6.7. No signs of acute bleeding and denies symptoms. Discussed and offered blood transfusion which she refused as she is a Jehovah witness Patient is a Anglican. Her son, Cl, is her DPOA-H. She was started on iron/B12/folic acid on 08/04. Discussed with Dr. Fitzgerald ( covering attending for hospitalist) who recommended consulting pharmacy about possible Infed infusion. Vitamine D level was borderline low at 39. Continue Calcium with Vit. D supplementation. Appreciate Dr. Bethea's time and expertise regarding metabolic bone work up. Urine output improved with Lasix 20mg x 1 dose given on 08/04/17. Nguyen removed and patient voiding well. Continue to monitor urinary output closely and encourage oral fluid intake. IV fluids discontinued on 08/04/17. Continue SCDs and ASA BID for DVT prophylaxis. Continue levothyroxine for hypothyroidism and simvastatin for hyperlipidemia. Will recheck CBC and BMP in AM to monitor blood counts, electrolytes and renal function.
[2017-08-05] MEDS ORDERED: PHARMACY CONSULT - OTHER MEDS MC ONE (11:45)
[2017-08-05] MEDS ORDERED: IRON DEXTRAN COMPLEX 100mg/2ml INJECTION IV ONE ×2 (13:00→15:00)
--- NOTE | 2017-08-05 15:02 | Pharmacy Consult ---
Pharmacy Consult-Iron - Laboratory Information Iron Labs 08/03/17 08/04/17 08/05/17 04:22 04:32 03:57 Hgb 10.9 L D 7.8 L D 6.7 L D Hct 33.0 L D 24.2 L D 20.6 L D - Consult Information IV IRON CONSULT: Dx: Acute anemia secondary to blood loss: blood loss estimated at approximately 2 units Today's hct = 20.6% Total calculated iron dextran dose = 200 mg Will give 25mg IV test dose. Watch VS q15min x 1 hr. (Watching for anaphylaxis, respiratory distress, hives) If no reaction, will give Iron Dextran 75 mg IV today for a total of 100 mg today and 100 mg IV dose tomorrow 08/06/17 Watch VS q30min x 4 after each therapeutic dose. Thank you for the iron dosing consult, Parul Crain RPh
[2017-08-05] MEDS: SIMVASTATIN 10 MG TABLET PO SCH (21:53)
[2017-08-06] MEDS: NOZIN NASAL SWAB NAS SCH ×4 (02:19→17:51)
[2017-08-06] MEDS: LEVOTHYROXINE 75 MCG TABLET PO SCH (05:36)
[2017-08-06] MEDS: CALCIUM 600 + VIT D 400 TABLET PO SCH ×2 (08:34→20:40)
[2017-08-06] MEDS: ASPIRIN *EC* 81 MG TABLET PO SCH ×2 (08:34→20:40)
[2017-08-06] MEDS: POLYETHYL GLYCOL 3350 17gm PACKET PO SCH (08:35)
[2017-08-06] MEDS: SENNA + DOCUSATE TABLET PO SCH ×2 (08:35→20:40)
[2017-08-06] MEDS ORDERED: IRON DEXTRAN COMPLEX 100mg/2ml INJECTION IV SCH (09:00)
--- NOTE | 2017-08-06 10:49 | Progress Note ---
<StephanLiz D - Last Filed: 08/06/17 10:46> - Date 08/06/17 Subjective: Sandy is seen today in follow up. She is up in chair, pale but alert. She denies any needs. Reports pain is controlled. No other acute needs are reports. Chart is reviewed- pt. is noted to be a Lutheran and has declined blood replacement. Objective Vital signs: Temperature 98.9 F 08/06/17 07:22 Pulse Rate 77 08/06/17 07:22 Respiratory Rate 18 08/06/17 07:22 Blood Pressure 126/51 08/06/17 07:22 Pulse Oximetry 98 08/06/17 07:22 Height/Weight/BMI: Height 1.73 m Weight 78.7 kg Body Mass Index 25.3 - Constitutional Present: no acute distress, well nourished, well developed, average body habitus , cooperative - Routine HEENT Exam Head: Present: normocephalic, atraumatic Eye: Present: EOMI, PERRL, normal accommodation ENT: Present: mucous membranes moist - Routine Respiratory Exam Present: CTA bilaterally. Absent: dyspnea, rhonchi, stridor - Routine Cardiovascular Exam Present: RRR, S1, S2, no murmur. Absent: tachycardia - Routine Abdominal Exam Present: soft, normoactive bowel sounds, non distended, non tender - Routine Extremities Exam Present: no edema. Absent: clubbing - Routine Musculoskeletal Exam Musculoskeletal: Present: limited range of motion. Absent: normal strength, normal gait - Routine Skin Exam Present: intact, dry, pallor, warm - Routine Neurological Exam Present: alert, oriented X3, moving all extremities - Routine Psychiatric Exam Present: normal affect, normal thought process, cooperative Results - Labs CBC & Chem 7: 08/06/17 04:11 08/06/17 04:11 Assessment and Plan (1) Intertrochanteric fracture of left hip Current visit: Yes Status: Acute Assessment and Plan: Assessment S/P long gamma nail placement by Dr. Marrero - 08/03/17. Left intertrochanteric hip fracture Fall secondary to loss of footing -no loss of consciousness Hypothyroidism Hyperlipidemia Osteopenia Jehovah witness - does not want blood transfusions Acute blood loss anemia with hemoglobin of 13 on 08/02/2017 and and 10.9 2016 and 7.8 on 08/04/2017, 6.7 on 08/05. Plan - 08/06/17 (Stephan/Lia) POD #3. *She is doing well post operatively. Pain is controlled *Significant Post-operative anemia. She has refused Blood Transfusion based on jain beliefs. Pharmacy following for IV transfusion. Appreciate assistance. Could consider epogen/procrit if continues to drop. *Continue synthroid, statin per home medications. Weight is stable. Continue to monitor labs and support. DC planning for SNU vs. Rehab ongoing. DVT Prophylaxis: other (ASA BID) GI Prophylaxis: other (N/A) Resuscitation Status: No Blood Products - Time spent with patient Time with patient PN: 30 minutes Hospital Course Summary Disclaimer: The visit summary below is not to be considered part of the above Progress Note. Hospital Course: Left intertrochanteric hip fracture Hypothyroidism Hyperlipidemia Osteopenia 08/02/17 Hospital admission Admit as inpatient to the hospitalist service, Dr. Marquez attending, for intertrochanteric hip fracture. It is expected her stay will exceed 2 overnights given her fracture requiring surgery. Consult placed to Dr. Verma with plan for surgery tomorrow. Nothing by mouth after midnight. Consult Dr. Bethea for metabolic bone workup. Nguyen catheter placed in emergency department. SCDs for DVT prophylaxis. MiraLAX,PRN milk of magnesia,PRN bisacodyl suppository, and senna plus docusate ordered for bowel motivation. Acetaminophen 500 mg every 5 hours and Dilaudid IV every 3 hours PRN pain. Ondansetron 4 mg IV every 6 hours PRN nausea/vomiting. Continue levothyroxine for hypothyroidism and simvastatin for hyperlipidemia. CBC, BMP, TSH and vitamin D in the a.m. for laboratory completeness. Patient wishes to be a full code. Upon dismissal, care to return to Dr. Man. Patient is a Lutheran and refuses blood transfusion, even in the midst of a life-threatening situation. Her son, Cl, is her DPOA-H. 08/03/2017 Plan Overall, Mrs. Cutler is doing well and continues to improve. Her pain is well controlled. Continue pain control, limiting narcotics as able. Continue to encourage participation in therapies for strengthening and improvement functional abilities. Awaiting IRU screen. Hemoglobin continues to trend down - currently 6.7. No signs of acute bleeding and denies symptoms. Discussed and offered blood transfusion which she refused as she is a Jehovah witness Patient is a Buddhism. Her son, Cl, is her DPOA-H. She was started on iron/B12/folic acid on 08/04. Discussed with Dr. Fitzgerald ( covering attending for hospitalist) who recommended consulting pharmacy about possible Infed infusion. Vitamine D level was borderline low at 39. Continue Calcium with Vit. D supplementation. Appreciate Dr. Bethea's time and expertise regarding metabolic bone work up. Urine output improved with Lasix 20mg x 1 dose given on 08/04/17. Nguyen removed and patient voiding well. Continue to monitor urinary output closely and encourage oral fluid intake. IV fluids discontinued on 08/04/17. Continue SCDs and ASA BID for DVT prophylaxis. Continue levothyroxine for hypothyroidism and simvastatin for hyperlipidemia. Will recheck CBC and BMP in AM to monitor blood counts, electrolytes and renal function. 08/06/17 10:55 08/06/17 (Stephan/Lia) POD #3. *She is doing well post operatively. Pain is controlled *Significant Post-operative anemia. She has refused Blood Transfusion based on jain beliefs. Pharmacy following for IV transfusion. Appreciate assistance. Could consider epogen/procrit if continues to drop. *Continue synthroid, statin per home medications. Weight is stable. Continue to monitor labs and support. DC planning for SNU vs. Rehab ongoing. <Jose Martin Fitzgerald - Last Filed: 08/06/17 12:05> - Date 08/06/17 Objective Vital signs: Temperature 99.1 F 08/06/17 11:29 Pulse Rate 85 08/06/17 11:29 Respiratory Rate 14 08/06/17 11:29 Blood Pressure 125/56 08/06/17 11:29 Pulse Oximetry 97 08/06/17 11:29 Height/Weight/BMI: Height 5 ft 8 in Weight 78.7 kg Body Mass Index 25.3 Results - Labs CBC & Chem 7: 08/06/17 04:11 08/06/17 04:11 Assessment and Plan - Physician Narriative Physician: other (Lia) Narriative: 08/06/17 12:04 She has seen and examined. The above note reviewed and agreed. Additionally, and limited her lab test tomorrow to a hemoglobin and a reticulocyte count. This will us know how well her bone marrow is responding to her acute anemia. Hospital Course Summary Disclaimer: The visit summary below is not to be considered part of the above Progress Note.
[2017-08-06] MEDS: SALINE FLUSH 10ml SYRINGE IVF PRN (17:51)
[2017-08-06] MEDS: SIMVASTATIN 10 MG TABLET PO SCH (20:40)
[2017-08-07] MEDS: NOZIN NASAL SWAB NAS SCH ×3 (01:07→18:34)
[2017-08-07] MEDS: LEVOTHYROXINE 75 MCG TABLET PO SCH (06:15)
[2017-08-07] MEDS: ASPIRIN *EC* 81 MG TABLET PO SCH ×2 (08:52→20:19)
[2017-08-07] MEDS: CALCIUM 600 + VIT D 400 TABLET PO SCH ×2 (08:52→20:18)
[2017-08-07] MEDS: SENNA + DOCUSATE TABLET PO SCH ×2 (08:52→20:18)
[2017-08-07] MEDS: POLYETHYL GLYCOL 3350 17gm PACKET PO SCH (08:52)
--- NOTE | 2017-08-07 14:35 | Progress Note ---
- Date 08/07/17 Subjective: Sandy is seen today in follow up today. Overall she is feeling good however does have left hip pain with work with therapy. She is eating good and bowels are moving without difficulty. Overall doing well. Hgb remains 6.7. Objective Vital signs: Temperature 97.3 F 08/07/17 12:00 Pulse Rate 88 08/07/17 12:00 Respiratory Rate 16 08/07/17 12:00 Blood Pressure 134/56 08/07/17 12:00 Pulse Oximetry 97 08/07/17 12:00 Height/Weight/BMI: Height 1.73 m Weight 78.7 kg Body Mass Index 25.3 - Constitutional Present: no acute distress, well nourished, well developed - Routine HEENT Exam Eye: Present: EOMI ENT: Present: mucous membranes moist, dentition normal - Routine Respiratory Exam Present: CTA bilaterally. Absent: wheezes - Routine Cardiovascular Exam Present: RRR, S1, S2. Absent: murmur - Routine Abdominal Exam Present: soft, normoactive bowel sounds, non distended. Absent: tenderness - Routine Extremities Exam Present: pulses intact Comments: Left hip - Routine Skin Exam Present: intact, dry, warm - Routine Neurological Exam Present: alert, oriented X3, CN II-XII intact - Routine Lymphatic Exam Lymphatic: Absent: adenopathy - Routine Psychiatric Exam Present: normal affect Results - Labs CBC & Chem 7: 08/07/17 04:42 08/06/17 04:11 Assessment and Plan (1) Intertrochanteric fracture of left hip Current visit: Yes Status: Acute Assessment and Plan: Assessment S/P long gamma nail placement by Dr. Marrero - 08/03/17. Left intertrochanteric hip fracture Fall secondary to loss of footing -no loss of consciousness Hypothyroidism Hyperlipidemia Osteopenia Jehovah witness - does not want blood transfusions Acute blood loss anemia with hemoglobin of 13 on 08/02/2017 and and 10.9 2016 and 7.8 on 08/04/2017, 6.7 on 08/05. Plan - 08/07 Unfortunately, she is not able to go to IRU she has been accepted to [facility] for skilled rehabilitation. Would like her hemoglobin to be greater than 7. Will plan to recheck tomorrow morning. Patient continues to refuse blood transfusion due to her sikh beliefs. Tolerated iron supplementation Continue to encourage work with PT and OT for ongoing strengthening. Will Discuss further orders with attending Hospital Course Summary Disclaimer: The visit summary below is not to be considered part of the above Progress Note. Hospital Course: Left intertrochanteric hip fracture Hypothyroidism Hyperlipidemia Osteopenia 08/02/17 Hospital admission Admit as inpatient to the hospitalist service, Dr. Marquez attending, for intertrochanteric hip fracture. It is expected her stay will exceed 2 overnights given her fracture requiring surgery. Consult placed to Dr. Verma with plan for surgery tomorrow. Nothing by mouth after midnight. Consult Dr. Bethea for metabolic bone workup. Nguyen catheter placed in emergency department. SCDs for DVT prophylaxis. MiraLAX,PRN milk of magnesia,PRN bisacodyl suppository, and senna plus docusate ordered for bowel motivation. Acetaminophen 500 mg every 5 hours and Dilaudid IV every 3 hours PRN pain. Ondansetron 4 mg IV every 6 hours PRN nausea/vomiting. Continue levothyroxine for hypothyroidism and simvastatin for hyperlipidemia. CBC, BMP, TSH and vitamin D in the a.m. for laboratory completeness. Patient wishes to be a full code. Upon dismissal, care to return to Dr. Man. Patient is a Judaism and refuses blood transfusion, even in the midst of a life-threatening situation. Her son, Cl, is her DPOA-H. 08/03/2017 Plan Overall, Mrs. Cutler is doing well and continues to improve. Her pain is well controlled. Continue pain control, limiting narcotics as able. Continue to encourage participation in therapies for strengthening and improvement functional abilities. Awaiting IRU screen. Hemoglobin continues to trend down - currently 6.7. No signs of acute bleeding and denies symptoms. Discussed and offered blood transfusion which she refused as she is a Jehovah witness Patient is a [employer]. Her son, Cl, is her DPOA-H. She was started on iron/B12/folic acid on 08/04. Discussed with Dr. Fitzgerald ( covering attending for hospitalist) who recommended consulting pharmacy about possible Infed infusion. Vitamine D level was borderline low at 39. Continue Calcium with Vit. D supplementation. Appreciate Dr. Bethea's time and expertise regarding metabolic bone work up. Urine output improved with Lasix 20mg x 1 dose given on 08/04/17. Nguyen removed and patient voiding well. Continue to monitor urinary output closely and encourage oral fluid intake. IV fluids discontinued on 08/04/17. Continue SCDs and ASA BID for DVT prophylaxis. Continue levothyroxine for hypothyroidism and simvastatin for hyperlipidemia. Will recheck CBC and BMP in AM to monitor blood counts, electrolytes and renal function. 08/06/17 10:55 08/06/17 (Stephan/Lia) POD #3. *She is doing well post operatively. Pain is controlled *Significant Post-operative anemia. She has refused Blood Transfusion based on sikh beliefs. Pharmacy following for IV transfusion. Appreciate assistance. Could consider epogen/procrit if continues to drop. *Continue synthroid, statin per home medications. Weight is stable. Continue to monitor labs and support. DC planning for SNU vs. Rehab ongoing. Plan - 08/07 Unfortunately, she is not able to go to IRU she has been accepted to [facility] for skilled rehabilitation. Would like her hemoglobin to be greater than 7. Will plan to recheck tomorrow morning. Patient continues to refuse blood transfusion due to her sikh beliefs. Tolerated iron supplementation Continue to encourage work with PT and OT for ongoing strengthening. Will Discuss further orders with attending
[2017-08-07] MEDS: SIMVASTATIN 10 MG TABLET PO SCH (20:19)
[2017-08-08] MEDS: NOZIN NASAL SWAB NAS SCH ×2 (02:29→12:05)
[2017-08-08] MEDS: LEVOTHYROXINE 75 MCG TABLET PO SCH (05:46)
--- NOTE | 2017-08-08 07:50 | Orthopedic Progress Note ---
Date: Subjective/Severity of Illness: Sandy is sitting up in bed and appears comfortable. She states she no longer has felt dizzy when she first sits up. Denies CP or breathing difficulties. She was up with PT yesterday and it hurts more with activity. Pain is minimal at rest. Switched from Lovenox to ASA twice a day and will encourage SCDs and mobility to prevent DVTs. Re checked Hgb down to 6.7 today Orthopedic Objective PO Vital signs: Temperature 99.3 F 08/08/17 07:16 Pulse Rate 78 08/08/17 07:16 Respiratory Rate 16 08/08/17 07:16 Blood Pressure 119/54 08/08/17 07:16 Pulse Oximetry 95 08/08/17 07:16 Height and Weight: Height 5 ft 8 in Weight 171 lb 15.369 oz Body Mass Index 25.3 - Constitutional General Appearance: Present: alert, no acute distress - Respiratory Exam Present: non-labored - Cardiovascular Exam Present: pedal pulses intact - Abdominal Exam Absent: tenderness - Surgical Site Incision: dressing intact, no drainage - Integumentary Exam Present: pink, warm, dry, intact - Lymphatic Lymphatic: Absent: adenopathy - Neurological Exam Present: intact to light touch, no deficits - Psychiatric Exam Present: alert, normal affect - Labs Result Diagrams: 08/08/17 04:19 08/06/17 04:11 Abnormal lab results 08/08/17 Range/Units 04:19 RBC 2.11 L (4.00-5.20) M/MM3 Hgb 6.7 L (12-16) GM/DL Hct 20.8 L (36-46) % Immature Gran % (Auto) 1.4 H (0.0-0.5) % Lymph % (Auto) 19.9 L (23-45) % Terrell % (Auto) 9.9 H (0-9.0) % Terrell # (Auto) 0.9 H (0-0.8) T/MM3 Abs Immat Gran (auto) 0.12 H (0.00-0.03) T/MM3 H & H 08/03/17 08/04/17 08/05/17 Range/Units 04:22 04:32 03:57 Hgb 10.9 L D 7.8 L D 6.7 L D (12-16) GM/DL Hct 33.0 L D 24.2 L D 20.6 L D (36-46) % 08/06/17 08/07/17 08/08/17 Range/Units 04:11 04:42 04:19 Hgb 6.2 L 6.7 L 6.7 L (12-16) GM/DL Hct 19.2 L 20.8 L (36-46) % Orthopedic Assessment and Plan (1) Intertrochanteric fracture of left hip Status: Acute Qualifiers: Encounter type: initial encounter Fracture type: closed Fracture alignment: displaced Qualified Code(s): S72.142A - Displaced intertrochanteric fracture of left femur, initial encounter for closed fracture Assessment and Plan: Long Gamma Nail by Dr Marrero 08/03/17. Aspirin and SCDs for DVT coverage in place of Lovenox. Anemia fairly well tolerated at this time. Hgb 6.7 Folic acid / B12 and iron ordered. Mobilize with PT . WBAT. Orthopaedically ready for discharge when medically cleared ASA for a 6 week course for DVT prevention Follow up 2 weeks with Mahamed Bey. Hospital Course Summary Disclaimer: The visit summary below is not to be considered part of the above Progress Note. Hospital Course: Left intertrochanteric hip fracture Hypothyroidism Hyperlipidemia Osteopenia 08/02/17 Hospital admission Admit as inpatient to the hospitalist service, Dr. Marquez attending, for intertrochanteric hip fracture. It is expected her stay will exceed 2 overnights given her fracture requiring surgery. Consult placed to Dr. Verma with plan for surgery tomorrow. Nothing by mouth after midnight. Consult Dr. Bethea for metabolic bone workup. Nguyen catheter placed in emergency department. SCDs for DVT prophylaxis. MiraLAX,PRN milk of magnesia,PRN bisacodyl suppository, and senna plus docusate ordered for bowel motivation. Acetaminophen 500 mg every 5 hours and Dilaudid IV every 3 hours PRN pain. Ondansetron 4 mg IV every 6 hours PRN nausea/vomiting. Continue levothyroxine for hypothyroidism and simvastatin for hyperlipidemia. CBC, BMP, TSH and vitamin D in the a.m. for laboratory completeness. Patient wishes to be a full code. Upon dismissal, care to return to Dr. Man. Patient is a Mu-ism and refuses blood transfusion, even in the midst of a life-threatening situation. Her son, Cl, is her DPOA-H. 08/03/2017 Plan Overall, Mrs. Cutler is doing well and continues to improve. Her pain is well controlled. Continue pain control, limiting narcotics as able. Continue to encourage participation in therapies for strengthening and improvement functional abilities. Awaiting IRU screen. Hemoglobin continues to trend down - currently 6.7. No signs of acute bleeding and denies symptoms. Discussed and offered blood transfusion which she refused as she is a Jehovah witness Patient is a Catholic. Her son, Cl, is her DPOA-H. She was started on iron/B12/folic acid on 08/04. Discussed with Dr. Fitzgerald ( covering attending for hospitalist) who recommended consulting pharmacy about possible Infed infusion. Vitamine D level was borderline low at 39. Continue Calcium with Vit. D supplementation. Appreciate Dr. Bethea's time and expertise regarding metabolic bone work up. Urine output improved with Lasix 20mg x 1 dose given on 08/04/17. Nguyen removed and patient voiding well. Continue to monitor urinary output closely and encourage oral fluid intake. IV fluids discontinued on 08/04/17. Continue SCDs and ASA BID for DVT prophylaxis. Continue levothyroxine for hypothyroidism and simvastatin for hyperlipidemia. Will recheck CBC and BMP in AM to monitor blood counts, electrolytes and renal function. 08/06/17 10:55 08/06/17 (Stephan/Lia) POD #3. *She is doing well post operatively. Pain is controlled *Significant Post-operative anemia. She has refused Blood Transfusion based on caodaism beliefs. Pharmacy following for IV transfusion. Appreciate assistance. Could consider epogen/procrit if continues to drop. *Continue synthroid, statin per home medications. Weight is stable. Continue to monitor labs and support. DC planning for SNU vs. Rehab ongoing. Plan - 08/07 Unfortunately, she is not able to go to IRU she has been accepted to [facility] for skilled rehabilitation. Would like her hemoglobin to be greater than 7. Will plan to recheck tomorrow morning. Patient continues to refuse blood transfusion due to her caodaism beliefs. Tolerated iron supplementation Continue to encourage work with PT and OT for ongoing strengthening. Will Discuss further orders with attending
[2017-08-08] MEDS: POLYETHYL GLYCOL 3350 17gm PACKET PO SCH (09:33)
[2017-08-08] MEDS: SENNA + DOCUSATE TABLET PO SCH (09:33)
[2017-08-08] MEDS: CALCIUM 600 + VIT D 400 TABLET PO SCH (09:33)
[2017-08-08] MEDS: ASPIRIN *EC* 81 MG TABLET PO SCH (09:34)
--- NOTE | 2017-08-08 10:51 | Extended Care Facility Orders ---
Admission Orders Admit to:: Detention Allergies/Adverse Reactions: Allergies Penicillins Allergy (Verified 08/05/17 00:25) Hives Sulfa (Sulfonamide Antibiotics) Allergy (Verified 08/05/17 00:25) Admitting Diagnosis: left intertrochanteric femur fracture Admitting Physician: David Joy MD Attending Physician: David Joy MD Code Status: No Blood Products Anticiapted Length of Stay: 30 days or less Rehab Potential: good Rehab Prognosis: good Diet: Regular diet May use Facility Protocol or Standing Orders: Yes May have flu vaccine: Yes Evaluations/Treatment: PT, OT Detention Certification: I certify that SNF services are required to be given on an Inpatient basis because of the patients need for correction care on a continuing basis for the condition(s) for which he/she received inpatient hospital services prior to his/her transfer to the SNF. SNF inpatient care is necessary for the following reasons Indication for Detention: Other (PT,OT) - Additional Information In Event of Arrest: Start CPR,call 911,send patient to the ER Referrals: David Bethea MD [Physician] - 10/03/17 9:00 am (PLEASE ARRIVE AT 8:30AM TO FILL OUT NEW PATIENT PAPERWORK.) Mahamed Bey PA [Physician Quality Analyst] - 08/23/17 2:30 pm Additional Orders: Aspirin twice a day for 6 weeks. for postoperative DVT prophylaxis. Patient is to continue on oral iron supplementation. Given postoperative anemia. CBC to be done on 07/1517-please send to PCP, Dr. Man
--- NOTE | 2017-08-08 10:55 | Discharge Summary ---
<Domenica Dwyer V - Last Filed: 08/08/17 10:52> Discharge Information Date of admission: 08/02/17 16:42 Attending Physician: David Joy MD Primary care physician: Raquel Man MD Consults: Dr. Marrero-orthopedist Dr. Bethea-metabolic bone disease evaluation - Discharge Diagnosis (1) Intertrochanteric fracture of left hip Status: Acute Left intertrochanteric hip fracture Postoperative anemia Hypothyroidism Hyperlipidemia Osteopenia - Procedures Procedures: 08/03/17- Intramedullary fixation of left intertrochanteric hip fracture. Dr Marrero - Laboratory Labs: 08/08/17 04:19 08/06/17 04:11 - Microbiology None - Radiology Radiology: 08/02/17-femur, pelvis [id number]: Closed posttraumatic intertrochanteric left femoral fracture. 08/02/17-chest x-ray-no acute cardiopulmonary disease. 08/02/17-CT scan of the head revealing no intracranial abnormality or trauma - Pathology none History of Present Illness HPI: Patient is a 71-year-old female who resides at home with her son. Earlier today she was coming up stairs from her basement, forgot something, and started back down the stairs and fell. She did not lose consciousness. She had immediate pain. Her son was home and called EMS. She was brought to the emergency department and had a workup including negative CT head, negative chest x-ray, and pelvic/femur x-rays which revealed an intertrochanteric left hip fracture. EKG was normal. She had several fentanyl doses and a dose of Zofran in the ER. Urinary catheter was also placed on the ER. Dr. Verma was notified and plans to do surgery tomorrow. The hospitalist service was notified for admission of the patient. Objective Vital signs: Temperature 99.3 F 08/08/17 07:16 Pulse Rate 78 08/08/17 07:16 Respiratory Rate 16 08/08/17 07:16 Blood Pressure 119/54 08/08/17 07:16 Pulse Oximetry 95 08/08/17 07:16 Height/Weight/BMI: Height 1.73 m Weight 78 kg Body Mass Index 25.3 - Constitutional Present: no acute distress, well nourished, well developed - Routine HEENT Exam Eye: Present: EOMI ENT: Present: mucous membranes moist, dentition normal - Routine Respiratory Exam Present: CTA bilaterally. Absent: wheezes - Routine Cardiovascular Exam Present: RRR, S1, S2. Absent: murmur - Routine Abdominal Exam Present: soft, normoactive bowel sounds, non distended. Absent: tenderness - Routine Extremities Exam Present: pulses intact, normal capillary refill - Routine Skin Exam Present: intact, dry, warm - Routine Neurological Exam Present: alert, oriented X3, CN II-XII intact, moving all extremities - Routine Lymphatic Exam Lymphatic: Absent: adenopathy - Routine Psychiatric Exam Present: normal affect, cooperative Hospital Course This is a general summary of the patient's hospital course. For more details refer to the complete medical record. Hospital course: Left intertrochanteric hip fracture Hypothyroidism Hyperlipidemia Osteopenia 08/02/17 Hospital admission Admit as inpatient to the hospitalist service, Dr. Marquez attending, for intertrochanteric hip fracture. It is expected her stay will exceed 2 overnights given her fracture requiring surgery. Consult placed to Dr. Verma with plan for surgery tomorrow. Nothing by mouth after midnight. Consult Dr. Bethea for metabolic bone workup. Nguyen catheter placed in emergency department. SCDs for DVT prophylaxis. MiraLAX,PRN milk of magnesia,PRN bisacodyl suppository, and senna plus docusate ordered for bowel motivation. Acetaminophen 500 mg every 5 hours and Dilaudid IV every 3 hours PRN pain. Ondansetron 4 mg IV every 6 hours PRN nausea/vomiting. Continue levothyroxine for hypothyroidism and simvastatin for hyperlipidemia. CBC, BMP, TSH and vitamin D in the a.m. for laboratory completeness. Patient wishes to be a full code. Upon dismissal, care to return to Dr. Man. Patient is a Alevism and refuses blood transfusion, even in the midst of a life-threatening situation. Her son, Cl, is her DPOA-H. 08/03/2017 Plan Overall, Mrs. Cutler is doing well and continues to improve. Her pain is well controlled. Continue pain control, limiting narcotics as able. Continue to encourage participation in therapies for strengthening and improvement functional abilities. Awaiting IRU screen. Hemoglobin continues to trend down - currently 6.7. No signs of acute bleeding and denies symptoms. Discussed and offered blood transfusion which she refused as she is a Jehovah witness Patient is a Amish. Her son, Cl, is her DPOA-H. She was started on iron/B12/folic acid on 08/04. Discussed with Dr. Fitzgerald ( covering attending for hospitalist) who recommended consulting pharmacy about possible Infed infusion. Vitamine D level was borderline low at 39. Continue Calcium with Vit. D supplementation. Appreciate Dr. Bethea's time and expertise regarding metabolic bone work up. Urine output improved with Lasix 20mg x 1 dose given on 08/04/17. Nguyen removed and patient voiding well. Continue to monitor urinary output closely and encourage oral fluid intake. IV fluids discontinued on 08/04/17. Continue SCDs and ASA BID for DVT prophylaxis. Continue levothyroxine for hypothyroidism and simvastatin for hyperlipidemia. Will recheck CBC and BMP in AM to monitor blood counts, electrolytes and renal function. 08/06/17 (Stephan/Lia) POD #3. *She is doing well post operatively. Pain is controlled *Significant Post-operative anemia. She has refused Blood Transfusion based on druze beliefs. Pharmacy following for IV transfusion. Appreciate assistance. Could consider epogen/procrit if continues to drop. *Continue synthroid, statin per home medications. Weight is stable. Continue to monitor labs and support. DC planning for SNU vs. Rehab ongoing. Plan - 08/07 Unfortunately, she is not able to go to IRU she has been accepted to [facility] for skilled rehabilitation. Would like her hemoglobin to be greater than 7. Will plan to recheck tomorrow morning. Patient continues to refuse blood transfusion due to her druze beliefs. Tolerated iron supplementation Continue to encourage work with PT and OT for ongoing strengthening. Will Discuss further orders with attending 08/08/17- Discharge Remigio is seen and examined on day of discharge. She continues to be feeling good with minimal hip pain. She has no complaints of shortness of breath, chest pain, or GI concerns. Appetite is good. She is moving her bowels without difficulty. Vital signs remained stable. We discussed hemoglobin and postoperative anemia. She continues to understand this and continues to refuse any blood transfusions. She is hemodynamically stable and ready for discharge. We will recommend continuing oral iron supplementation. She will need to continue on aspirin twice a day for 6 weeks through 09/15/17-for postoperative anticoagulation. She is planned to go to [facility] or skilled postoperative rehabilitation and strengthening. Primary care provider. Dr. Raquel Man is notified of discharge. Would like her to follow patient carefully in the outpatient setting. Ordered for outpatient CBC 08/11/17. Time spent with patient: discharge greater than 30 minutes Discharge Plan - Discharge Disposition Discharge Date: 08/08/17 Disposition: 03 To SNU Not UTC (SNF) *Condition: Stable Reason For Visit (Visit label in EMR): left intertrochanteric femur fracture - Discharge Medications *Discharge Medications: New Aspirin *EC* [Ecotrin] 81 mg PO BID tab Iron/C/Folate 6/B12/Zn/Stomach [Chromagen Softgel] 1 each PO BID #30 cap PEG 3350 17gm PACKET [Miralax] 17 gm PO DAILY packet Senna + Docusate [Senna Plus Tablet] 1 tab PO BID tab Continue Levothyroxine Tab [Synthroid] 75 mcg PO ACB Simvastatin [Zocor] 10 mg PO HS - Discharge Packet/Instructions *Diet: Regular *Activity: Weightbearing as tolerated *Pain Management/Treatment: Tylenol as needed for pain control *Wound Care: N/A Additional Instructions: She is to take aspirin twice a day for 6 weeks through 09/15/17 for postoperative anticoagulation. Continue with iron supplementation. CBC to be done on 07/1517-please send to PCP, Dr. Man *Expected Signs/Symptoms: Improvement in strength *Notify Physician if: Fever, chills, severe pain, blood in stools *During Business Hours Contact: Contact PCP Dr Man *After Business Hours Contact: Page oncall physician or present to the ER *Pending Lab/Results: Follow up w/Provider - Referrals/Follow Up *Referrals/Follow Up: David Bethea MD [Physician] - 10/03/17 9:00 am (PLEASE ARRIVE AT 8:30AM TO FILL OUT NEW PATIENT PAPERWORK.) Mahamed Bey PA [Physician Freight Coordinator] - 08/23/17 2:30 pm - Patient Handouts Patient Handouts: [facility] Postop Instructions <David Joy - Last Filed: 08/08/17 15:04> Discharge Information Date of admission: 08/02/17 16:42 Attending Physician: David Joy MD Primary care physician: Raquel Man MD Consults: 08/02/17 18:39 Dr [Physician Consult] [CONS] Routine Consulting Provider: Jay Verma Reason For Exam: Left intertrochanteric femur fracture Ordering Provider has Notified Poultry Processing Supervisor: Yes Physician Consult [CONS] Routine Consulting Provider: David Bethea Reason For Exam: Metabolic Bone Disease Ordering Provider has Notified Poultry Processing Supervisor: No 08/03/17 IRU Screening [Inpatient Rehab Screening] [CONS] Routine Screen requested by:: Case Management Comment Text:: lives at home 08/04/17 14:52 Physician Consult [CONS] Routine Consulting Provider: Valorie Perez Reason For Exam: SNU Ordering Provider has Notified Poultry Processing Supervisor: Yes Physician Consult [CONS] Routine Consulting Provider: [facility] Reason For Exam: SNU Ordering Provider has Notified Poultry Processing Supervisor: Yes 08/04/17 14:54 Physician Consult [CONS] Routine Consulting Provider: Penny Paniagua Reason For Exam: SNU Ordering Provider has Notified Poultry Processing Supervisor: Yes - Laboratory Labs: 08/08/17 04:19 08/06/17 04:11 Objective Vital signs: Temperature 98.7 F 08/08/17 11:27 Pulse Rate 76 08/08/17 11:27 Respiratory Rate 17 08/08/17 11:27 Blood Pressure 123/49 08/08/17 11:27 Pulse Oximetry 98 08/08/17 11:27 Height/Weight/BMI: Height 1.73 m Weight 78 kg Body Mass Index 25.3 Hospital Course This is a general summary of the patient's hospital course. For more details refer to the complete medical record. Attestation Narriative - Attestation Attestation Narrative: 08/08/17 15:00 David Eisenberg M.D. Patient seen and examined today prior to discharge. She is being discharged to skilled care [facility]. Our intent was to discharge her to IRU, however insurance would not approve, therefore she will go to skilled care. She does have postop anemia with a hemoglobin of 6.7. She does not take any human blood products due to druze believes and therefore is not accepted a transfusion. She was treated with both oral and IV iron therapy. She'll be discharged on chromogen. Pain management postop was with Tylenol, she did not require narcotics during her recovery. We are discharging her on Tylenol, to follow-up with her primary care provider. Recommend repeat CBC on 08/11/2017. She will follow up under the care of Dr. Man. David Joy M.D.
[2017-08-08 11:28] VITALS: BP 123/49; PULSE 76; RESP 17; TEMP 98.7; O2SAT 98
== END 2017-08-08 14:00 | DRG 481 ==
LOC: ED 15:59 → SUATTDRO 16:42 → SRG 16:42
PROVIDERS: ADMIT Hospitalist; ATTEND Family Medicine